=== PATIENT | male | born 1955 | race Native Hawaiian/Other Pacific Islander ===

== ENCOUNTER 2019-03-03 14:42 | Outpatient (CLI) | payer OTHER ==
[2019-03-03 15:05] LABS: PLATELET COUNT 304 K/uL (142-355)
[2019-03-03 15:23] LABS: POTASSIUM 3.7 mmol/L (3.6-5.2)
== END 2019-03-03 22:02 | disposition home or self-care (01) ==
LOC: LABW 14:42
PROVIDERS: Nurse Practitioner Family
DX: R56.9 Unspecified convulsions (principal)
CPT/HCPCS: 36415; 80053; 80339; 82542; 85027

== ENCOUNTER 2020-02-14 09:24 | Outpatient (CLI) | payer OTHER | END 2020-02-14 20:27 | disposition home or self-care (01) | LOC: RESP 09:24 | DX: R55 Syncope and collapse (principal); I44.30 Unspecified atrioventricular block ==

== ENCOUNTER 2020-02-15 08:38 | Outpatient (CLI) | payer OTHER | END 2020-02-15 20:13 | disposition home or self-care (01) | LOC: NM 08:38 | DX: R55 Syncope and collapse (principal); I44.30 Unspecified atrioventricular block | CPT/HCPCS: A9500; J2785 ==

== ENCOUNTER 2022-03-01 12:45 | Outpatient (CLI) | payer OTHER | END 2022-03-01 20:34 | disposition home or self-care (01) | LOC: LABW 12:45 | PROVIDERS: ATTEND Nurse Practitioner | DX: G40.109 Localization-related (focal) (partial) symptomatic epilepsy and epileptic syndromes with simple partial seizures, not intractable, without status epilepticus (principal); R42 Dizziness and giddiness | CPT/HCPCS: 36415; 80339; 82542 ==